=== PATIENT | female | born 1960 | race Caucasian/White ===

== ENCOUNTER → 2017-04-28 | Outpatient (CLI) | payer BC ==
[~2017-04-28] MED LIST: ACET500 PO; AZELAIC ACID; Azelex30 GM TP; CALCAVITDA PO; ESTRTP VAG; FOLI1 PO; Ferrous Sulfat325 M2 PO; IRON PO; KETO15TC TOP; Ketoconazole15 GM TOP; MESA400ER PO; METTREX2.5; MULTI-DAY PLUS1 EAC1 PO; OXYACE5T PO; Omeprazole20 M1 PO; PRED20 PO; Remicade100 MG IV; TUMERIC ROOT PO; Triamcinolone A15 G3 TOP; [UNRECOGNIZED DRUG - OTHER] PO
[2017-04-28 14:54] LABS: BASOPHILS ABSOLUTE AUTO 0.09 K/mm3 (0.00-0.23); BASOPHILS PERCENT AUTO 1 % (0-2); EOSINOPHILS ABSOLUTE AUTO 0.17 K/mm3 (0.00-0.68); EOSINOPHILS PERCENT AUTO 2 % (0-6); Hematocrit 33.9 % (33.0-51.0); Hemoglobin 10.8 g/dL (11.5-16.0); IMMATURE GRAN ABSOLUTE AUTO 0.03 K/mm3 (0.00-0.10); IMMATURE GRAN PERCENT AUTO 0 % (0-1); LYMPHOCYTES ABSOLUTE AUTO 1.32 K/mm3 (0.84-5.20); LYMPHOCYTES PERCENT AUTO 16 % (21-46); MONOCYTES ABSOLUTE AUTO 0.84 K/mm3 (0.16-1.47); MONOCYTES PERCENT AUTO 10 % (4-13); Mean Corpuscular HGB 27.4 pg (26.0-34.0); Mean Corpuscular HGB Conc 31.9 g/dL (31.5-36.5); Mean Corpuscular Volume 86 fL (80-100); Mean Platelet Volume 9.7 fL (9.1-12.4); NEUTROPHILS ABSOLUTE AUTO 5.98 K/mm3 (1.96-9.15); NEUTROPHILS PERCENT AUTO 71 % (41-73); Platelet Count 354 K/mm3 (150-400); RDW Coefficient Variation 13.4 % (11.7-14.2); Red Blood Cell Count 3.94 M/mm3 (3.80-5.20); White Blood Cell Count 8.43 K/mm3 (4.00-11.30)
[2017-04-28 15:02] LABS: Anion Gap 10 mmol/L (6-16); Blood Urea Nitrogen 9 mg/dL (8-24); Bun/Creatinine Ratio 11.7 (12.0-20.0); CO2, Blood 28 mmol/L (21-32); Calcium, Blood 9.1 mg/dL (8.5-10.1); Chloride, Blood 103 mmol/L (98-108); Creatinine, Blood 0.77 mg/dL (0.40-1.00); Glomerular Filtration Rate >60 (60-); Glucose, Blood 95 mg/dL (70-99); Potassium, Blood 3.7 mmol/L (3.5-5.5); Sodium, Blood 141 mmol/L (136-145)
== END | disposition home or self-care (01) ==
LOC: LAB EV 14:50
PROVIDERS: Family Medicine
DX: N39.0 Urinary tract infection, site not specified (principal); R10.9 Unspecified abdominal pain
CPT/HCPCS: 80048; 83690; 85025; 87077; 87086; 87186

== ENCOUNTER 2017-05-06 00:51 | Day surgery (SDC) | payer BC ==
[~2017-05-06 00:51] MED LIST changes: -Ferrous Sulfat325 M2 PO; -KETO15TC TOP; -Ketoconazole15 GM TOP; -Omeprazole20 M1 PO; -Triamcinolone A15 G3 TOP; -[UNRECOGNIZED DRUG - OTHER] PO
[2017-05-06] MEDS ORDERED: Omeprazole20 M1 PO (08:12)
[2018-02-17] MEDS ORDERED: Ketoconazole15 GM TOP (08:20)
== END 2017-05-06 10:53 | disposition home or self-care (01) ==
LOC: ATC 00:51
DX: K50.90 Crohn's disease, unspecified, without complications (principal)
CPT/HCPCS: 96413; 96415; J1745; J7050

== ENCOUNTER → 2017-06-28 | Outpatient (CLI) | payer BC ==
[~2017-06-28] MED LIST changes: +Ferrous Sulfat325 M2 PO; +KETO15TC TOP; +Ketoconazole15 GM TOP; +Omeprazole20 M1 PO; +Triamcinolone A15 G3 TOP; +[UNRECOGNIZED DRUG - OTHER] PO
== END ==
LOC: LAB EV 12:44
DX: N39.0 Urinary tract infection, site not specified (principal)
CPT/HCPCS: 87086

== ENCOUNTER 2017-07-08 00:20 | Day surgery (SDC) | payer BC ==
[~2017-07-08 00:20] MED LIST changes: -Ferrous Sulfat325 M2 PO; -KETO15TC TOP; -Ketoconazole15 GM TOP; -Triamcinolone A15 G3 TOP; -[UNRECOGNIZED DRUG - OTHER] PO
== END 2017-07-08 10:45 | disposition home or self-care (01) ==
LOC: ATC 00:20
DX: K50.90 Crohn's disease, unspecified, without complications (principal)
CPT/HCPCS: 96413; 96415; J1745; J7050

== ENCOUNTER → 2017-08-13 | Outpatient (CLI) | payer BC ==
[2017-08-13 10:14] LABS: BASOPHILS ABSOLUTE AUTO 0.09 K/mm3 (0.00-0.23); BASOPHILS PERCENT AUTO 2 % (0-2); EOSINOPHILS ABSOLUTE AUTO 0.29 K/mm3 (0.00-0.68); EOSINOPHILS PERCENT AUTO 5 % (0-6); Hematocrit 27.3 % (33.0-51.0); IMMATURE GRAN ABSOLUTE AUTO 0.01 K/mm3 (0.00-0.10); IMMATURE GRAN PERCENT AUTO 0 % (0-1); LYMPHOCYTES PERCENT AUTO 27 % (21-46); MONOCYTES ABSOLUTE AUTO 0.72 K/mm3 (0.16-1.47); MONOCYTES PERCENT AUTO 12 % (4-13); Mean Corpuscular HGB 23.1 pg (26.0-34.0); Mean Corpuscular HGB Conc 29.3 g/dL (31.5-36.5); Mean Corpuscular Volume 79 fL (80-100); Mean Platelet Volume 9.9 fL (9.1-12.4); NEUTROPHILS ABSOLUTE AUTO 3.39 K/mm3 (1.96-9.15); NEUTROPHILS PERCENT AUTO 55 % (41-73); Platelet Count 318 K/mm3 (150-400); RDW Coefficient Variation 18.1 % (11.7-14.2); Red Blood Cell Count 3.47 M/mm3 (3.80-5.20)
== END | disposition home or self-care (01) ==
LOC: LAB SHORT 10:08 → LAB EV 10:08
PROVIDERS: Nurse Practitioner Family
DX: D50.0 Iron deficiency anemia secondary to blood loss (chronic) (principal)
CPT/HCPCS: 36415; 85025

== ENCOUNTER 2017-09-02 00:12 | Day surgery (SDC) | payer BC ==
[2017-09-02] MEDS ORDERED: Ferrous Sulfat325 M2 PO (08:27)
== END 2017-09-02 11:30 | disposition home or self-care (01) ==
LOC: ATC 00:12
DX: K50.90 Crohn's disease, unspecified, without complications (principal)
CPT/HCPCS: 96413; 96415; J1745; J7050

== ENCOUNTER 2017-12-23 00:37 | Day surgery (SDC) | payer BC ==
[~2017-12-23 00:37] MED LIST changes: +Ferrous Sulfat325 M2 PO
[2017-12-23] MEDS ORDERED: Triamcinolone A15 G3 TOP (08:20)
[2017-12-23] MEDS ORDERED: KETO15TC TOP (08:21)
[2017-12-23] MEDS ORDERED: [UNRECOGNIZED DRUG - OTHER] PO (08:24)
== END 2017-12-23 10:32 | disposition home or self-care (01) ==
LOC: ATC 00:37
DX: K50.90 Crohn's disease, unspecified, without complications (principal)
CPT/HCPCS: 96413; 96415; J1745; J7050

== ENCOUNTER 2018-04-14 07:58 | Day surgery (SDC) | payer BC ==
[~2018-04-14 07:58] MED LIST changes: +KETO15TC TOP; +Ketoconazole15 GM TOP; +Triamcinolone A15 G3 TOP; +[UNRECOGNIZED DRUG - OTHER] PO
== END 2018-04-14 09:57 | disposition home or self-care (01) ==
LOC: ATC 07:58
DX: K50.90 Crohn's disease, unspecified, without complications (principal)
CPT/HCPCS: 96413; J1745; J7050

== ENCOUNTER 2018-06-09 00:44 | Day surgery (SDC) | payer BC ==
[2018-06-09 08:34] LABS: BASOPHILS ABSOLUTE AUTO 0.07 K/mm3 (0.00-0.23); BASOPHILS PERCENT AUTO 1 % (0-2); EOSINOPHILS ABSOLUTE AUTO 0.19 K/mm3 (0.00-0.68); EOSINOPHILS PERCENT AUTO 2 % (0-6); Hematocrit 36.4 % (33.0-51.0); Hemoglobin 11.4 g/dL (11.5-16.0); IMMATURE GRAN ABSOLUTE AUTO 0.01 K/mm3 (0.00-0.10); IMMATURE GRAN PERCENT AUTO 0 % (0-1); LYMPHOCYTES ABSOLUTE AUTO 1.27 K/mm3 (0.84-5.20); LYMPHOCYTES PERCENT AUTO 16 % (21-46); MONOCYTES ABSOLUTE AUTO 0.74 K/mm3 (0.16-1.47); MONOCYTES PERCENT AUTO 10 % (4-13); Mean Corpuscular HGB 28.3 pg (26.0-34.0); Mean Corpuscular HGB Conc 31.3 g/dL (31.5-36.5); Mean Corpuscular Volume 90 fL (80-100); Mean Platelet Volume 10.3 fL (9.1-12.4); NEUTROPHILS ABSOLUTE AUTO 5.49 K/mm3 (1.96-9.15); NEUTROPHILS PERCENT AUTO 71 % (41-73); Platelet Count 273 K/mm3 (150-400); RDW Coefficient Variation 14.3 % (11.7-14.2); RDW Standard Deviation 47.4 fL (35.1-46.3); Red Blood Cell Count 4.03 M/mm3 (3.80-5.20); White Blood Cell Count 7.77 K/mm3 (4.00-11.30)
[2018-06-09 08:55] LABS: Percent Saturation 19.2 % (15.0-50.0)
[2018-06-09 09:00] LABS: Anion Gap 7 mmol/L (6-16); Blood Urea Nitrogen 12 mg/dL (8-24); Bun/Creatinine Ratio 18.8 (12.0-20.0); CO2, Blood 26 mmol/L (21-32); Calcium, Blood 8.3 mg/dL (8.5-10.1); Chloride, Blood 107 mmol/L (98-108); Creatinine, Blood 0.64 mg/dL (0.40-1.00); Glomerular Filtration Rate >60 (60-); Glucose, Blood 108 mg/dL (70-99); Potassium, Blood 3.7 mmol/L (3.5-5.5); Sodium, Blood 140 mmol/L (136-145)
== END 2018-06-09 09:32 | disposition home or self-care (01) ==
LOC: ATC 00:44
PROVIDERS: Nurse Practitioner Family
DX: K50.90 Crohn's disease, unspecified, without complications (principal); Z79.899 Other long term (current) drug therapy
CPT/HCPCS: 80048; 82728; 83540; 83550; 84443; 85025; 96413; J1745; J7050

== ENCOUNTER 2018-09-29 00:12 | Day surgery (SDC) | payer BC ==
[~2018-09-29 00:12] MED LIST changes: +CALCIUM WITH V1 EACH PO
== END 2018-09-29 11:00 | disposition home or self-care (01) ==
LOC: ATC 00:12
DX: K50.90 Crohn's disease, unspecified, without complications (principal); D50.0 Iron deficiency anemia secondary to blood loss (chronic); E78.5 Hyperlipidemia, unspecified; Z79.899 Other long term (current) drug therapy; Z91.048 Other nonmedicinal substance allergy status; Z79.84 Long term (current) use of oral hypoglycemic drugs
CPT/HCPCS: 96413; 96415; J1745; J7050

== ENCOUNTER 2018-11-24 02:03 | Day surgery (SDC) | payer BC | END 2018-11-24 10:01 | disposition home or self-care (01) | LOC: ATC 02:03 | DX: K50.90 Crohn's disease, unspecified, without complications (principal); D50.0 Iron deficiency anemia secondary to blood loss (chronic); E78.5 Hyperlipidemia, unspecified; Z79.899 Other long term (current) drug therapy; Z91.048 Other nonmedicinal substance allergy status; Z90.49 Acquired absence of other specified parts of digestive tract | CPT/HCPCS: 96413; J1745; J7050 ==

== ENCOUNTER 2019-01-05 00:07 | Day surgery (SDC) | payer BC | END 2019-01-05 09:58 | disposition home or self-care (01) | LOC: ATC 00:07 | DX: K50.90 Crohn's disease, unspecified, without complications (principal); N82.3 Fistula of vagina to large intestine; Z90.49 Acquired absence of other specified parts of digestive tract; Z79.899 Other long term (current) drug therapy | CPT/HCPCS: 96413; J1745; J7050 ==

== ENCOUNTER 2019-02-16 00:14 | Day surgery (SDC) | payer BC | END 2019-02-16 09:35 | disposition home or self-care (01) | LOC: ATC 00:14 | DX: K50.10 Crohn's disease of large intestine without complications (principal); M19.90 Unspecified osteoarthritis, unspecified site; Z90.49 Acquired absence of other specified parts of digestive tract; Z79.899 Other long term (current) drug therapy | CPT/HCPCS: J1745; J7050 ==

== ENCOUNTER 2019-03-30 02:10 | Day surgery (SDC) | payer BC | END 2019-03-30 10:14 | disposition home or self-care (01) | LOC: ATC 02:10 | DX: K50.90 Crohn's disease, unspecified, without complications (principal); N82.3 Fistula of vagina to large intestine; Z79.899 Other long term (current) drug therapy | CPT/HCPCS: 96413; J1745; J7050 ==

== ENCOUNTER → 2019-11-27 | Outpatient (CLI) | payer BC ==
[2019-11-27 17:34] LABS: BASOPHILS ABSOLUTE AUTO 0.08 K/mm3 (0.00-0.23); BASOPHILS PERCENT AUTO 1 % (0-2); EOSINOPHILS ABSOLUTE AUTO 0.26 K/mm3 (0.00-0.68); EOSINOPHILS PERCENT AUTO 5 % (0-6); Hematocrit 37.2 % (33.0-51.0); Hemoglobin 11.9 g/dL (11.5-16.0); IMMATURE GRAN ABSOLUTE AUTO 0.01 K/mm3 (0.00-0.10); IMMATURE GRAN PERCENT AUTO 0 % (0-1); LYMPHOCYTES ABSOLUTE AUTO 1.98 K/mm3 (0.84-5.20); LYMPHOCYTES PERCENT AUTO 36 % (21-46); MONOCYTES ABSOLUTE AUTO 0.59 K/mm3 (0.16-1.47); MONOCYTES PERCENT AUTO 11 % (4-13); Mean Corpuscular HGB 29.8 pg (26.0-34.0); Mean Corpuscular Volume 93 fL (80-100); Mean Platelet Volume 9.4 fL (9.1-12.4); NEUTROPHILS ABSOLUTE AUTO 2.63 K/mm3 (1.96-9.15); NEUTROPHILS PERCENT AUTO 47 % (41-73); Platelet Count 303 K/mm3 (150-400); RDW Coefficient Variation 15.1 % (11.7-14.2); RDW Standard Deviation 51.3 fL (35.1-46.3); White Blood Cell Count 5.55 K/mm3 (4.00-11.30)
[2019-11-27 17:49] LABS: Alanine Aminotransfer (ALT/SGP 30 U/L (12-78); Albumin, Blood 3.5 g/dL (3.4-5.0); Albumin/Globulin Ratio 0.8 (0.8-1.8); Alk Phos 111 U/L (40-126); Anion Gap 7 mmol/L (6-16); Aspartate Aminotrans (AST/SGOT 32 U/L (12-37); Bilirubin, Total 0.2 mg/dL (0.1-1.0); Blood Urea Nitrogen 12 mg/dL (8-24); Bun/Creatinine Ratio 15.8 (12.0-20.0); CO2, Blood 29 mmol/L (21-32); Calcium, Blood 8.7 mg/dL (8.5-10.1); Chloride, Blood 102 mmol/L (98-108); Creatinine, Blood 0.76 mg/dL (0.40-1.00); Globulin, Blood 4.3 g/dL (2.2-4.0); Glomerular Filtration Rate >60 (60-); Glucose, Blood 68 mg/dL (70-99); Potassium, Blood 4.2 mmol/L (3.5-5.5); Sodium, Blood 138 mmol/L (136-145); Total Protein, Blood 7.8 g/dL (6.4-8.2)
== END | disposition home or self-care (01) ==
LOC: LAB SHORT 17:18 → LAB EV 17:18
PROVIDERS: Internal Medicine Gastroenterology
DX: N82.3 Fistula of vagina to large intestine (principal)
CPT/HCPCS: 36415; 80053; 85025

== ENCOUNTER → 2020-04-27 | Outpatient (CLI) | payer BC ==
[2020-04-27 15:12] LABS: BASOPHILS PERCENT AUTO 1 % (0-2); EOSINOPHILS ABSOLUTE AUTO 0.24 K/mm3 (0.00-0.68); EOSINOPHILS PERCENT AUTO 3 % (0-6); Hematocrit 37.3 % (33.0-51.0); Hemoglobin 12.2 g/dL (11.5-16.0); IMMATURE GRAN ABSOLUTE AUTO 0.02 K/mm3 (0.00-0.10); IMMATURE GRAN PERCENT AUTO 0 % (0-1); LYMPHOCYTES ABSOLUTE AUTO 1.69 K/mm3 (0.84-5.20); LYMPHOCYTES PERCENT AUTO 23 % (21-46); MONOCYTES ABSOLUTE AUTO 0.62 K/mm3 (0.16-1.47); MONOCYTES PERCENT AUTO 8 % (4-13); Mean Corpuscular HGB Conc 32.7 g/dL (31.5-36.5); Mean Corpuscular Volume 98 fL (80-100); Mean Platelet Volume 10.1 fL (9.1-12.4); NEUTROPHILS ABSOLUTE AUTO 4.69 K/mm3 (1.96-9.15); NEUTROPHILS PERCENT AUTO 64 % (41-73); Platelet Count 275 K/mm3 (150-400); RDW Coefficient Variation 13.7 % (11.7-14.2); Red Blood Cell Count 3.81 M/mm3 (3.80-5.20); White Blood Cell Count 7.36 K/mm3 (4.00-11.30)
[2020-04-27 15:29] LABS: Alanine Aminotransfer (ALT/SGP 25 U/L (12-78); Albumin, Blood 3.6 g/dL (3.4-5.0); Albumin/Globulin Ratio 0.9 (0.8-1.8); Alk Phos 91 U/L (40-126); Anion Gap 6 mmol/L (6-16); Aspartate Aminotrans (AST/SGOT 23 U/L (12-37); Bilirubin, Total 0.2 mg/dL (0.1-1.0); Blood Urea Nitrogen 14 mg/dL (8-24); Bun/Creatinine Ratio 15.6 (12.0-20.0); CO2, Blood 30 mmol/L (21-32); Calcium, Blood 8.9 mg/dL (8.5-10.1); Chloride, Blood 103 mmol/L (98-108); Globulin, Blood 3.9 g/dL (2.2-4.0); Glomerular Filtration Rate >60 (60-); Glucose, Blood 92 mg/dL (70-99); Potassium, Blood 3.5 mmol/L (3.5-5.5); Sodium, Blood 139 mmol/L (136-145); Total Protein, Blood 7.5 g/dL (6.4-8.2)
== END ==
LOC: LAB 15:05 → LAB SHORT 15:05
PROVIDERS: Internal Medicine Gastroenterology
DX: N82.3 Fistula of vagina to large intestine (principal)
CPT/HCPCS: 36415; 80053; 85025

== ENCOUNTER → 2022-06-16 | Outpatient (CLI) | payer BC | END | disposition home or self-care (01) | LOC: LAB SHORT 10:58 → LAB 10:58 | DX: N39.0 Urinary tract infection, site not specified (principal) | CPT/HCPCS: 87086 ==

== ENCOUNTER 2023-11-21 13:55 | Emergency (ER) | payer BC ==
[~2023-11-21] VITALS: Ht 165.1 cm; Wt 65.8 kg
[2023-11-21 14:01] VITALS: BP 129/75
[2023-11-21] MEDS ORDERED: Tetracaine HCl/Pf 0.5% Opth Soln 4 ml LEFTEYE ONE (14:10)
== END 2023-11-21 15:50 | disposition home or self-care (01) ==
LOC: ER 13:55
DX: H53.9 Unspecified visual disturbance (principal); K21.9 Gastro-esophageal reflux disease without esophagitis; Z79.899 Other long term (current) drug therapy
CPT/HCPCS: 99283

== ENCOUNTER 2024-03-06 05:47 | Day surgery (SDC) | payer BC ==
[~2024-03-06 05:47] MED LIST changes: +RISANKIZUMAB-RZAA 600 MG in NS 250 ML IV SCH
[2024-03-06 16:02] VITALS: BP 130/68
== END 2024-03-06 17:55 | disposition home or self-care (01) ==
LOC: ATC 05:47
DX: K50.90 Crohn's disease, unspecified, without complications (principal); K91.850 Pouchitis
CPT/HCPCS: 96365; J2327; J7050

== ENCOUNTER → 2024-04-01 | Outpatient (CLI) | payer BC ==
[~2024-04-01] MED LIST changes: -RISANKIZUMAB-RZAA 600 MG in NS 250 ML IV SCH
[2024-04-01 15:09] LABS: BASOPHILS ABSOLUTE AUTO 0.12 K/mm3 (0.00-0.23); BASOPHILS PERCENT AUTO 1 % (0-2); EOSINOPHILS ABSOLUTE AUTO 0.34 K/mm3 (0.00-0.68); EOSINOPHILS PERCENT AUTO 3 % (0-6); Hematocrit 38.3 % (33.0-51.0); Hemoglobin 12.6 g/dL (11.5-16.0); IMMATURE GRAN ABSOLUTE AUTO 0.03 K/mm3 (0.00-0.10); IMMATURE GRAN PERCENT AUTO 0 % (0-1); LYMPHOCYTES ABSOLUTE AUTO 2.41 K/mm3 (0.84-5.20); LYMPHOCYTES PERCENT AUTO 22 % (21-46); MONOCYTES ABSOLUTE AUTO 0.82 K/mm3 (0.16-1.47); MONOCYTES PERCENT AUTO 8 % (4-13); Mean Corpuscular HGB 30.7 pg (26.0-34.0); Mean Corpuscular HGB Conc 32.9 g/dL (31.5-36.5); Mean Corpuscular Volume 93 fL (80-100); Mean Platelet Volume 9.5 fL (9.1-12.4); NEUTROPHILS ABSOLUTE AUTO 7.24 K/mm3 (1.96-9.15); NEUTROPHILS PERCENT AUTO 66 % (41-73); Platelet Count 297 K/mm3 (150-400); RDW Coefficient Variation 13.5 % (11.7-14.2); RDW Standard Deviation 45.5 fL (35.1-46.3); Red Blood Cell Count 4.11 M/mm3 (3.80-5.20); White Blood Cell Count 10.96 K/mm3 (4.00-11.30)
[2024-04-01 15:19] LABS: Albumin, Blood 3.5 g/dL (3.4-5.0); Albumin/Globulin Ratio 0.8 (0.8-1.8); Bilirubin, Total 0.3 mg/dL (0.1-1.0); Bun/Creatinine Ratio 16.5 (12.0-20.0); Calcium, Blood 8.6 mg/dL (8.5-10.1); Creatinine, Blood 0.85 mg/dL (0.40-1.00); Globulin, Blood 4.2 g/dL (2.2-4.0); Potassium, Blood 3.9 mmol/L (3.5-5.5); Total Protein, Blood 7.7 g/dL (6.4-8.2)
== END ==
LOC: LAB SHORT 15:04
PROVIDERS: Family Medicine
DX: R10.2 Pelvic and perineal pain (principal)
CPT/HCPCS: 80053; 85025

== ENCOUNTER 2024-04-18 01:02 | Day surgery (SDC) | payer BC ==
[~2024-04-18 01:02] MED LIST changes: +RISANKIZUMAB-RZAA 600 MG in NS 250 ML IV SCH
[2024-04-18 16:24] VITALS: BP 120/72
[2024-04-18] MEDS ORDERED: ESTRADIOL0.5 MG (16:29)
[2024-04-18] MEDS ORDERED: FOLI1 PO (16:30)
[2024-04-18] MEDS ORDERED: SKYRIZI600 MG/10 IV (16:30)
== END 2024-04-18 18:10 | disposition home or self-care (01) ==
LOC: ATC 01:02
DX: K50.90 Crohn's disease, unspecified, without complications (principal); Z90.710 Acquired absence of both cervix and uterus; Z91.09 Other allergy status, other than to drugs and biological substances
CPT/HCPCS: 96365; J2327; J7050

== ENCOUNTER 2024-05-16 02:42 | Day surgery (SDC) | payer BC ==
[~2024-05-16 02:42] MED LIST changes: +ESTRADIOL0.5 MG; -RISANKIZUMAB-RZAA 600 MG in NS 250 ML IV SCH; +SKYRIZI600 MG/10 IV
[2024-05-16] MEDS ORDERED: RISANKIZUMAB-RZAA 600 MG in NS 250 ML IV SCH (06:00)
[2024-05-16 16:09] VITALS: BP 130/76
== END 2024-05-16 18:13 | disposition home or self-care (01) ==
LOC: ATC 02:42
DX: K50.90 Crohn's disease, unspecified, without complications (principal); Z79.899 Other long term (current) drug therapy; Z91.09 Other allergy status, other than to drugs and biological substances; Z90.710 Acquired absence of both cervix and uterus
CPT/HCPCS: J2327; J7050